=== PATIENT | female | born 1980 | race Caucasian/White ===

== ENCOUNTER 2017-12-21 11:04 | Emergency (ER) | END 2017-12-21 13:41 | disposition home or self-care (01) ==

== ENCOUNTER 2017-12-23 11:20 | Emergency (ER) | END 2017-12-23 13:24 | disposition home or self-care (01) ==

== ENCOUNTER 2017-12-30 11:28 | Emergency (ER) | END 2017-12-30 13:30 | disposition home or self-care (01) ==